=== PATIENT | female | born 1955 | race Caucasian/White ===

== ENCOUNTER 2017-02-10 11:49 | Emergency (ER) | payer OTHER ==
[~2017-02-10] VITALS: Ht 149.9 cm; Wt 84.0 kg
[~2017-02-10 11:49] MED LIST: DIPH2%T PO; FLUR30CA12 PO; LEVO.1 PO; MONT10TA2 PO; OXYC-360 PO; PRIL20TA2 PO; TRAM50TA PO; TRAZ150T2 PO; ZYRT10TA12 PO
[2017-02-10 12:00] VITALS: BP 163/94; PULSE 89; RESP 19; TEMP 98.3; O2SAT 97
[2017-02-10] MEDS ORDERED: ACETAMINOPHEN/HYDROcodone 325 MG/5 MG TAB PO ONE ×2 (12:30→13:30)
--- NOTE | 2017-02-10 13:13 | RADRPT ---
EXAM DATE/TIME: 02/10/2017 12:42 [facility] COMPARISON: No previous studies available for comparison. INDICATIONS : Fall pain over patella. MEDICAL HISTORY : None. SURGICAL HISTORY : None. ENCOUNTER: Initial ACUITY: 1 day PAIN SCORE: 9/10 LOCATION: Left knee. FINDINGS: Four view examination of the left knee demonstrates no evidence of fracture or dislocation. Bony min eralization is normal. The articular surfaces are intact. The suprapatellar soft tissues have a nor mal configuration. CONCLUSION: Negative for fracture or dislocation. Follow up in 7-10 days is suggested if symptoms persist. Jono Moreno MD FACR on February 10, 2017 at 13:11 Board Certified Radiologist. This report was verified electronically.
--- NOTE | 2017-02-10 13:13 | RADRPT ---
EXAM DATE/TIME: 02/10/2017 12:49 [facility] COMPARISON: No previous studies available for comparison. INDICATIONS : Fall with deformity to humerus. MEDICAL HISTORY : None. SURGICAL HISTORY : None. ENCOUNTER: Initial ACUITY: 1 day PAIN SCORE: 10/10 LOCATION: Left humerus FINDINGS: Humeral fracture again noted with moderate displacement and minimal overriding. There is no angulati on. CONCLUSION: Fracture as above. Jono Moreno MD FACR on February 10, 2017 at 13:11 Board Certified Radiologist. This report was verified electronically.
--- NOTE | 2017-02-10 13:45 | PD ---
HPI Chief Complaint: Injury Time Seen by Provider: 12:09 Travel History International Travel<30 days: No Contact w/Intl Traveler<30days: No Traveled to known affect area: No History of Present Illness HPI Patient is a 62-year-old female who presents to emergency room after she suffered a mechanical fall today. Patient reports that she was walking into a store this morning and she fell and landed on her left arm and left knee. Patient denies any loss of consciousness, denies any injury to the head or neck. Patient reports that she took the brunt for fall onto her left shoulder. Patient reports that she currently is not on any anticoagulants, she was able to able ambulate after the fall. Patient denies any chest pain or shortness of breath, denies any abdominal pain. Patient with no other complaints at this time. PFSH Past Medical History Arthritis: Yes (RA) Blood Disorders: No Cancer: Yes (BREAST) Cardiovascular Problems: No Diabetes: No Fibromyalgia: Yes GERD: Yes Glaucoma: No Genitourinary: No Hepatitis: No Hiatal Hernia: Yes Hypertension: No Immune Disorder: No Medical other: Yes (GERD; ARTHRITIS) Musculoskeletal: No Neurologic: No Reproductive: No Respiratory: No Thyroid Disease: Yes Tetanus Vaccination: > 5 Years ?: Not Past Surgical History AICD: No Gynecologic Surgery: Yes (D&C X 2) Insulin Pump: No Joint Replacement: No Oral Surgery: Yes (T&A (CHILDHOOD)) Pacemaker: No Tonsillectomy: Yes Other Surgery: Yes (BREAST BX) Social History Alcohol Use: No Tobacco Use: No Substance Use: No Allergies-Medications (Allergen,Severity, Reaction): Coded Allergies: Sulfa (Sulfonamide Antibiotics) (Unverified Allergy, Severe, 02/10/17) acetaminophen (Unverified Allergy, Severe, 02/10/17) adhesive (Unverified Allergy, Severe, ALSO ALLERGIC TO PAPER TAPE, 02/10/17 ) cephalexin (Unverified Allergy, Severe, 02/10/17) codeine (Unverified Allergy, Severe, 02/10/17) levofloxacin (Unverified Allergy, Severe, 02/10/17) meperidine (Unverified Allergy, Severe, 02/10/17) penicillin G (Unverified Allergy, Severe, 02/10/17) propoxyphene (Unverified Allergy, Severe, 02/10/17) pseudoephedrine (Unverified Allergy, Severe, 02/10/17) clarithromycin (Unverified Allergy, Intermediate, PT STATES SHE WAS AWAKE 3 DAYS, 02/10/17) rofecoxib (Unverified Allergy, Intermediate, NAUSEA AND VOMITING, 02/10/17) Uncoded Allergies: Z-PACK (Allergy, Severe, 04/03/05) BIAFINE (Adverse Reaction, Intermediate, LOCALIZED RASH, 07/11/08) DECONGESTANT (Adverse Reaction, Intermediate, INCREASE HEART-RATE, 05/09/08) REGENECARE (Adverse Reaction, Intermediate, LOCALIZED RASH, 07/11/08) Reported Meds & Prescriptions Reported Meds & Active Scripts Active Tramadol Hcl (Tramadol HCl) 50 Mg Tab 50 Mg PO Q6HR PRN Reported Percocet (Oxycodone/Acetaminophen) 5 Mg/325 Mg Tab 1-2 Tab PO Q6HPRN FOR PAIN Benadryl (Diphenhydramine HCl) 25 Mg Cap 25 Mg PO DAILYPRN Zyrtec (Cetirizine HCl) 10 Mg Tab 10 Mg PO HS Desyrel 150 Mg Tab (Trazodone HCl) 150 Mg Tab 150 Mg PO HS [place] 30 mg (Flurazepam HCl) 30 Mg Cap 30 Mg PO HS Singulair (Montelukast Sodium) 10 Mg Tab 10 Mg PO AM Synthroid 100 mcg (Levothyroxine Sodium) 100 Mcg Tab 100 Mcg PO DAILY Prilosec Otc (Omeprazole Magnesium) 20 Mg Tab 20 Mg PO DAILY Review of Systems General / Constitutional: No: Fever Eyes: No: Visual changes HENT: No: Headaches Cardiovascular: No: Chest Pain or Discomfort Respiratory: No: Shortness of Breath Gastrointestinal: No: Abdominal Pain Genitourinary: No: Dysuria Musculoskeletal: Positive: Limited ROM (left shoulder), Pain (left shoudler and left knee) Skin: No Rash Neurologic: No: Weakness Psychiatric: No: Depression Endocrine: No: Polydipsia Hematologic/Lymphatic: No: Easy Bruising Physical Exam Narrative GENERAL: moderate distress SKIN: Focused skin assessment warm/dry. HEAD: Atraumatic. Normocephalic. EYES: Pupils equal and round. No scleral icterus. No injection or drainage. ENT: No nasal bleeding or discharge. Mucous membranes pink and moist. NECK: Trachea midline. No JVD. CARDIOVASCULAR: Regular rate and rhythm. No murmur appreciated. RESPIRATORY: No accessory muscle use. Clear to auscultation. Breath sounds equal bilaterally. GASTROINTESTINAL: Abdomen soft, non-tender, nondistended. Hepatic and splenic margins not palpable. MUSCULOSKELETAL:Patient with pain with ROM to left shoulder and left elbow, patient with point tenderness to left humerus, pulses intact, neurovascularly intact. No clubbing. No cyanosis. No edema. Patient with good range of motion to the left hip, left knee and left ankle, she does have abrasion to her left. RUE: normal exam. RLL: normal exam NEUROLOGICAL: Awake and alert. No obvious cranial nerve deficits. Normal speech. PSYCHIATRIC: Appropriate mood and affect; insight and judgment normal. Data Data Last Documented VS Vital Signs Date Time Temp Pulse Resp B/P (MAP) Pulse Ox O2 Delivery O2 Flow Rate FiO2 02/10/17 12:00 98.3 89 19 163/94 (117) 97 Orders Orders Knee, Complete (4vws) (02/10/17 ) Elbow, Complete (4 Vws) (02/10/17 ) Forearm (2vws) (02/10/17 ) Acetamin-Hydrocod 325-5 Mg ([place] 5-325 (02/10/17 12:30) Humerus, One View (02/10/17 ) Acetamin-Hydrocod 325-5 Mg ([place] 5-325 (02/10/17 13:30) Splinting (02/10/17 ) Radiology Film Requests (02/10/17 ) Fiberglass Splint Elbow Adult (02/10/17 ) Sling And Swathe (02/10/17 ) [facility] Medical Decision Making Medical Screen Exam Complete: Yes Emergency Medical Condition: Yes Medical Record Reviewed: Yes Interpretation(s) Vital Signs Date Time Temp Pulse Resp B/P (MAP) Pulse Ox O2 Delivery O2 Flow Rate FiO2 02/10/17 12:00 98.3 89 19 163/94 (117) 97 Differential Diagnosis humerus fx, forearm fx, knee fx, patella fracture Narrative Course During the course of the patients emergency department visit, the patients history, examination, and differential diagnosis were reviewed with the patient. The patient was placed on a cardiac nurse practitioner with oximetry and frequent blood pressure monitoring. The patient was initially provided Lortab Radiology studies were reviewed and remarkable for: Last Impressions Knee X-Ray 02/10/17 0000 Signed Impressions: Service Date/Time: Friday, February 10, 2017 12:42 - CONCLUSION: Negative for fracture or dislocation. Follow up in 7-10 days is suggested if symptoms persist. Jono Moreno MD FACR Humerus X-Ray 02/10/17 0000 Signed Impressions: Service Date/Time: Friday, February 10, 2017 12:49 - CONCLUSION: Fracture as above. Jono Moreno MD FACR patient with fx to humeral head with moderate displacement and minimal overriding. call made to Dr. White to review case Case reviewed with Dr. White - request I talk to combination worker orthopedic surgery Case reviewed with Dr. Nolasco, requests that I place her in a coaptation splint - will have her follow-up in the office next week. Diagnosis Primary Impression: Humerus distal fracture Qualified Codes: S42.492A - Other displaced fracture of lower end of left humerus, initial encounter for closed fracture Referrals: Primo Nolasco Jr., MD Patient Instructions: General Instructions, Narcotic given in the ED Additional Instructions: Please provide patient with a copy of their lab work and studies at discharge* * Please follow up with your primary care doctor in 2-3 days Return to the ER if symptoms worsen or progress Return to the ER as needed Please follow-up with Dr. Mars in the office in one week, call first thing tomorrow morning for earliest appointment Med/Other Pt SpecificInfo: Prescription(s) given Scripts Hydrocodone-Acetaminophen (Lortab) 5-325 Mg Tab 1-2 TAB PO Q6H Y for PAIN, #20 TAB 0 Refills Prov: ArnoldMary Toshia SULLIVAN 02/10/17 Disposition: 01 DISCHARGE HOME Condition: Stable Mary Barrett DO Feb 10, 2017 13:45
[2017-02-10] MEDS ORDERED: HYDR-3533 PO (14:52)
--- NOTE | 2017-02-10 15:32 | RADRPT ---
EXAM DATE/TIME: 02/10/2017 14:48 [facility] COMPARISON: No previous studies available for comparison. INDICATIONS : Left arm pain after falling today. MEDICAL HISTORY : Rheumatoid arthritis. Fibromyalgia. SURGICAL HISTORY : Total knee replacement, right. ENCOUNTER: Initial ACUITY: 1 day PAIN SCORE: 8/10 LOCATION: Right forearm. FINDINGS: Two view examination of the left forearm demonstrates no evidence of fracture or dislocation. Bony m ineralization is normal. The soft tissue structures are intact. CONCLUSION: Negative for forearm fracture. Evaluation of the elbow. Distal humerus fracture is noted. Jono Moreno MD FACR on February 10, 2017 at 15:30 Board Certified Radiologist. This report was verified electronically.
--- NOTE | 2017-02-10 15:33 | RADRPT ---
EXAM DATE/TIME: 02/10/2017 14:50 [facility] COMPARISON: No previous studies available for comparison. INDICATIONS : Left elbow pain after falling today. MEDICAL HISTORY : Rheumatoid arthritis. Fibromyalgia. SURGICAL HISTORY : Total knee replacement, right. ENCOUNTER: Initial ACUITY: 1 day PAIN SCORE: 8/10 LOCATION: Left elbow. FINDINGS: Abdomen alignment about the elbow is in fiberglass. Fracture distal humerus in reasonable alignment. CONCLUSION: Elbow is intact. Jono Moreno MD FACR on February 10, 2017 at 15:31 Board Certified Radiologist. This report was verified electronically.
== END 2017-02-10 15:55 | disposition home or self-care (01) ==
LOC: NEPD 11:49
DX: S42.492A Other displaced fracture of lower end of left humerus, initial encounter for closed fracture (principal); M25.562 Pain in left knee; E07.9 Disorder of thyroid, unspecified; Z87.39 Personal history of other diseases of the musculoskeletal system and connective tissue; Z85.3 Personal history of malignant neoplasm of breast; Z87.19 Personal history of other diseases of the digestive system; W18.39XA Other fall on same level, initial encounter; Y92.512 Supermarket, store or market as the place of occurrence of the external cause
CPT/HCPCS: 29105; 73070; 73090; 73564

== ENCOUNTER 2017-02-16 07:27 | Observation (INO) | payer OTHER ==
[~2017-02-16] VITALS: Ht 149.9 cm; Wt 91.0 kg
[~2017-02-16 07:27] MED LIST changes: +HYDR-3533 PO
[2017-02-16] MEDS ORDERED: GENTAMICIN SULFATE 80 MG/2 ML VIAL ONE (07:41)
[2017-02-16] MEDS ORDERED: TRAZ100T10 PO (08:33)
[2017-02-16] MEDS ORDERED: OMEGCAP PO (08:33)
[2017-02-16] MEDS ORDERED: PLAQ200T PO (08:33)
[2017-02-16] MEDS ORDERED: METH25IN11 SQ (08:33)
[2017-02-16] MEDS ORDERED: LEVO100T5 PO (08:33)
[2017-02-16] MEDS ORDERED: CEVI1CAP PO ×2 (08:33→15:25)
[2017-02-16] MEDS ORDERED: HYDR-3580 PO (08:33)
[2017-02-16] MEDS ORDERED: TEMA30CA PO (08:33)
[2017-02-16] MEDS ORDERED: MELO7.5T27 PO (08:33)
[2017-02-16] MEDS ORDERED: DEXA0.5S PO (08:33)
[2017-02-16] MEDS ORDERED: CETI10CA3 PO (08:33)
[2017-02-16] MEDS ORDERED: OMEP20TA93 PO (08:33)
[2017-02-16] MEDS ORDERED: GABA300C5 PO (08:33)
[2017-02-16] MEDS ORDERED: FOLI400T PO (08:33)
[2017-02-16] MEDS ORDERED: FLUT1SPR5 EACH NARE (08:33)
[2017-02-16] MEDS ORDERED: FIBE500T PO (08:33)
[2017-02-16] MEDS ORDERED: ACETAMINOPHEN 1000 MG/100 ML 100 ML IV ONE (08:43)
[2017-02-16] MEDS ORDERED: CHLORHEXIDINE GLUCONATE 2 % 1 PACK (2 CLOTHS) TOPICAL PRN (08:45)
[2017-02-16] MEDS ORDERED: POVIDONE IODINE 5% (ANTISEPSIS KIT) 4 APPLICATIONS EACH NARE PRN (08:45)
[2017-02-16] MEDS ORDERED: SODIUM CHLORID 0.9% 500 ML IV PRN (08:45)
[2017-02-16] MEDS ORDERED: LACTATED RINGER'S 1000 ML IV PRN (08:45)
[2017-02-16] MEDS ORDERED: METOPROLOL TARTRATE 25 MG TAB PO PRN (08:45)
[2017-02-16] MEDS ORDERED: INSULIN HUMAN REGULAR 1,000 UNITS/10 ML VIAL SQ PRN (08:45)
[2017-02-16] MEDS ORDERED: ACET500L PO (08:50)
[2017-02-16] MEDS ORDERED: FAMOTIDINE 20 MG/2 ML VIAL ONE (08:52)
[2017-02-16] MEDS ORDERED: VANCOMYCIN 1000 MG/NS 250 ML (for <70 kg) IV SCH ×2 (09:00)
[2017-02-16] MEDS ORDERED: CHLORHEXIDINE GLUCONATE 4% SOLN 120 ML BTL TOPICAL SCH (09:00)
[2017-02-16] MEDS ORDERED: CLINDAMYCIN PHOS 600 MG/4 ML VIAL ONE (09:26)
[2017-02-16] MEDS ORDERED: HYDR-3583 PO (09:55)
[2017-02-16] MEDS ORDERED: CALCTAB19 PO (09:55)
[2017-02-16 10:18] LABS: HEMATOCRIT 34.5 % (35.0-46.0); MEAN CELL VOLUME 84.5 FL (80.0-100.0); MEAN CORPUSCULAR HEMOGLOBIN 29.1 PG (27.0-34.0); MEAN CORPUSCULAR HGB CONC 34.5 % (32.0-36.0); PLATELET COUNT 236 TH/MM3 (150-450); RED BLOOD COUNT 4.08 MIL/MM3 (4.00-5.30); RED CELL DISTRIBUTION WIDTH 14.1 % (11.6-17.2); REVIEW FLAG FINAL; WHITE BLOOD COUNT 6.9 TH/MM3 (4.0-11.0)
[2017-02-16 10:23] LABS: PROTHROMBIN TIME - PATIENT 11.2 SEC (9.8-11.6)
[2017-02-16 10:57] LABS: BICARBONATE 23.7 MEQ/L (21.0-32.0); POTASSIUM 4.2 MEQ/L (3.5-5.1)
[2017-02-16] MEDS ORDERED: DEXAMETHASONE 0.5 MG PO PRN (11:45)
--- NOTE | 2017-02-16 11:49 | PD.OP ---
cc: Yves Romero MD Operative Report Date of Surgery: Feb 16, 2017 Preoperative Diagnosis: Displaced left humeral shaft fracture Postoperative Diagnosis: Procedure: Open reduction total fixation left humeral shaft fracture Anesthesia: Gen. Surgeon: Yves Romero Commercial Carpet Installer(s): RENEE Dinero PA-C The surgical procedure was assisted by my physician tutoring assistant. My P.A. presence was necessary throughout this case for the manipulation and positioning of the surgical extremity. My P.A. was assisting me throughout the duration of this procedure. The skill set of a physician tutoring assistant was medically necessary to complete this procedure. During the surgical case the surgical garment fitter was working at the back table and the physician tutoring assistant was directly assisting me. Operation and Findings: Patient was seen and evaluated preoperatively. Treatment options were discussed regarding left humerus fracture including surgical and nonsurgical treatments. After detailed discussion of risk and benefits of procedure patient wishes to proceed with surgery. Risks of surgery include bleeding, infection, nonunion, malunion, painful hardware, loss of motion of shoulder and elbow, weakness and numbness of arm, as well as medical competitions including blood clots stroke and . Patient was brought to operating room and placed on the OR table. GETA was administered by anesthesiologist. Patient was positioned in lateral decubitus position. Extremities were well-padded. Axillary roll was placed. Operative arm and shoulder were prepped with alcohol followed by Hibiclens and draped usual sterile fashion. Timeout procedure was performed. IV antibiotics were given prior to incision. A standard posterior approach was utilized. Subcutaneous tissues was dissected with Bovie. The triceps muscle was split midline. The radial nerve was identified and protected throughout the procedure. The nerve was intact. The fracture was identified. Soft tissue was removed from the fracture site. Fracture site was cleaned with curettes. At this point the fracture was reduced using fracture tenaculums. There was a large butterfly fragment that keyed into anatomic alignment. Multiplanar fluoroscopy confirmed excellent of fracture. 3 Synthes 2.7 cortical lag screws were placed to compress fracture fragments. A Synthes 3.5 plate was contoured to fit the humerus. The plate was carefully placed underneath the radial nerve. Plate was provisionally held the bone with K wires. 3.5 cortical screws were placed on each side of the fracture. The screws were placed to add compression to fracture. Multiple screws were placed in each side of the fracture. All screws were predrilled and premeasured for appropriate length. Final fluoroscopy revealed excellent alignment of fracture with well-placed hardware. Incision was thoroughly irrigated. Fascia was closed with #1 Vicryl, subcutaneous tissues closed with 3 -0 Vicryl, and skin was closed with minnie. Sterile dressings were applied. Needle and sponge counts were correct. Patient was placed into a sling, and then transferred to recovery room in stable condition Yves Romero MD Feb 16, 2017 11:49
[2017-02-16] MEDS ORDERED: LIDOCAINE HCL 1% PF 5 ML AMPULE OTHER ONE (12:00)
[2017-02-16] MEDS ORDERED: ROCURONIUM INJ 50 MG/5 ML SYRINGE IV PUSH ONE (12:00)
[2017-02-16] MEDS ORDERED: GLYCOPYRROLATE 1 MG/5 ML SYRINGE IV PUSH ONE (12:00)
[2017-02-16] MEDS ORDERED: PROPOFOL 200 MG/20 ML AMP IV ONE (12:00)
[2017-02-16] MEDS ORDERED: NEOSTIGMINE 3 MG/3 ML SYR IV ONE (12:00)
[2017-02-16] MEDS ORDERED: ONDANSETRON HCL 4 MG/2 ML VIAL IV PUSH ONE (12:00)
[2017-02-16] MEDS ORDERED: MIDAZOLAM HCL 2 MG/2 ML VIAL IV ONE (12:00)
[2017-02-16] MEDS ORDERED: DEXAMETHASONE SOD PHOS 4 MG/ML VIAL IV ONE (12:00)
--- NOTE | 2017-02-16 12:02 | RADRPT ---
EXAM DATE/TIME: 02/16/2017 11:32 [facility] COMPARISON: HUMERUS LEFT (MIN 2VWS), February 10, 2017, 12:49. INDICATIONS : Post-op ORIF left distal humerus fracture. MEDICAL HISTORY : None. SURGICAL HISTORY : None. ENCOUNTER: Subsequent ACUITY: 1 week PAIN SCORE: Non-responsive. LOCATION: Left upper extremity FINDINGS: 5 spot fluoroscopic images obtained in the operating room during a procedure demonstrates placement o f a lateral distal humeral side plate with multiple interlocking screws. 3 lag screws are identified. There is improved anatomic alignment. CONCLUSION: Improved alignment following left distal humerus ORIF. Maulik Quiroz MD on February 16, 2017 at 11:59 Board Certified Radiologist. This report was verified electronically.
[2017-02-16] MEDS ORDERED: DO NOT ADM ANY ANTICOAGULANT DRUGS PRN (12:17)
[2017-02-16] MEDS ORDERED: *morphine SULFATE 8 MG/ML PERIprocedure ONLY ONE ×2 (12:42→13:31)
[2017-02-16] MEDS ORDERED: *LABETALOL HCL 100 MG/20 ML VIAL PERIprocedural Use ONLY ONE (12:46)
[2017-02-16] MEDS: GABAPENTIN 300 MG CAP PO SCH ×2 (13:00→16:48)
[2017-02-16] MEDS ORDERED: TEMAZEPAM 15 MG CAP PO PRN (13:00)
[2017-02-16] MEDS ORDERED: *HYDROmorphone PF 1 MG VIAL PERIprocedural Use ONLY ONE (13:49)
--- NOTE | 2017-02-16 14:01 | EKG ---
Date Performed: 02/16/2017 Time Performed: 08:24:56 PTAGE: 62 years EKG: Sinus rhythm NORMAL ECG PREVIOUS TRACING : 10/01/2009 08.15 Compared to prior tracing no significant change DOCTOR: Rolando Tamayo Interpretating Date/Time 02/16/2017 13:59:05
[2017-02-16 16:00] VITALS: BP 148/87; PULSE 95; RESP 18; TEMP 99.6; O2SAT 95
[2017-02-16 20:00] VITALS: BP 126/69; PULSE 108; RESP 20; TEMP 97.7; O2SAT 95
[2017-02-16] MEDS ORDERED: ACETAMINOPHEN/HYDROcodone 325 MG/10 MG TAB PO PRN (20:30)
[2017-02-16 20:45] VITALS: O2SAT 95
[2017-02-16] MEDS: HYDROXYCHLOROQUINE SULFATE 200 MG TAB PO SCH (20:59)
[2017-02-16] MEDS: FOLIC ACID 1 MG TAB PO SCH (20:59)
[2017-02-16] MEDS: ACETAMINOPHEN/HYDROcodone 325 MG/10 MG TAB PO PRN (20:59)
[2017-02-16] MEDS ORDERED: CETIRIZINE HCL 10 MG TAB PO SCH (21:00)
[2017-02-16] MEDS ORDERED: traZODone HCL 100 MG TAB PO SCH (21:00)
[2017-02-17] VITALS: BP 122/69; PULSE 112; RESP 20; TEMP 98.7; O2SAT 94
[2017-02-17 04:00] VITALS: BP 114/69; PULSE 104; RESP 20; TEMP 98.6; O2SAT 95
[2017-02-17] MEDS: ACETAMINOPHEN/HYDROcodone 325 MG/10 MG TAB PO PRN (05:02)
[2017-02-17] MEDS ORDERED: LEVOTHYROXINE SODIUM 100 MCG TAB PO SCH (06:00)
--- NOTE | 2017-02-17 07:04 | HHI.FF ---
Face to Face Verification Diagnosis: (1) Fracture of humeral shaft, left, closed Occupational Therapy Left UE Weight Bearing: Non WB Left UE Range of Motion: Pendular Nursing Dressing Changes: Ray wrap, 4x4s, Xeroform I have seen patient Rachel Chavez on 02/17/17. My clinical findings support the need for the requested home health care services because: Limited ability to care for self I certify that my clinical findings support that this patient is homebound because: Post-op weakness Simon Deng Jr. Feb 17, 2017 07:04
--- NOTE | 2017-02-17 07:07 | PD.ORT.PN ---
Subjective Subjective Remarks Resting comfortably with pain controlled Objective Vitals Vital Signs Date Time Temp Pulse Resp B/P (MAP) Pulse Ox O2 Delivery O2 Flow Rate FiO2 02/17/17 04:00 98.6 104 20 114/69 (84) 95 02/17/17 00:00 98.7 112 20 122/69 (86) 94 02/16/17 20:45 95 21 02/16/17 20:00 97.7 108 20 126/69 (88) 95 02/16/17 16:00 99.6 95 18 148/87 (107) 95 02/16/17 14:50 98.0 97 16 158/91 (113) 98 Nasal Cannula 2 02/16/17 14:30 96 18 169/89 (115) 99 Nasal Cannula 2 02/16/17 14:00 96 19 169/95 (119) 99 Nasal Cannula 2 02/16/17 13:45 93 17 177/95 (122) 99 Nasal Cannula 2 02/16/17 13:30 90 18 166/97 (120) 99 Nasal Cannula 2 02/16/17 13:15 92 18 160/90 (113) 99 Nasal Cannula 3 02/16/17 13:00 93 18 166/96 (119) 98 Nasal Cannula 3 02/16/17 12:45 92 18 175/99 (124) 98 Nasal Cannula 3 02/16/17 12:30 99 18 163/75 (104) 98 Nasal Cannula 3 02/16/17 12:16 98.2 115 20 143/76 (98) 96 Nasal Cannula 3 02/16/17 08:19 97.8 95 18 136/78 (97) 100 I/O 02/16/17 02/16/17 02/16/17 02/17/17 02/17/17 02/17/17 07:00 15:00 23:00 07:00 15:00 23:00 Intake Total 1100 ml 380 ml 220 ml Output Total 200 ml 250 ml 300 ml Balance 900 ml 130 ml -80 ml Intake Oral 100 ml 380 ml 220 ml IV Total 0 ml Other 1000 ml Output Urine Total 250 ml 300 ml Estimated Blood Loss 200 ml # Voids 1 # Bowel Movements 0 0 Result Diagram: 02/16/17 1005 02/16/17 1005 Other Results Laboratory Tests Test 02/16/17 10:05 Prothromb Time International Ratio 1.0 RATIO Prothrombin Time 11.2 SEC (9.8-11.6) Imaging Last 72 hours Impressions Humerus X-Ray 02/16/17 0000 Signed Impressions: Service Date/Time: Thursday, February 16, 2017 11:32 - CONCLUSION: Improved alignment following left distal humerus ORIF. Maulik Quiroz MD Objective Remarks Left upper extremity: Clean dry dressings intact. Sling in place. Distally intact sensation of her radial ulnar median nerve distributions with good capillary refills. Full extension and flexion of all fingers. Assessment & Plan Assessment and Plan Left distal humeral shaft fracture status post open reduction internal fixation POD 1 Nonweightbearing left upper extremity Sling at all times except for physical therapy and or pendulum swings. Discharged home today Case management for home health care for dressing changes and pendulum swings Follow-up Dr. Romero or PA in 2 weeks Simon Deng Jr. Feb 17, 2017 07:07
[2017-02-17 08:00] VITALS: BP 99/69; PULSE 100; RESP 18; TEMP 96.5; O2SAT 98
[2017-02-17] MEDS ORDERED: PANTOPRAZOLE SOD 20 MG DELAYED RELEASE TAB PO SCH (09:00)
[2017-02-17] MEDS ORDERED: FLUTICASONE PROPIONATE 50 MCG/ACT 16 GM NASAL SPRAY EACH NARE SCH (09:00)
[2017-02-17] MEDS ORDERED: CALCIUM CARBONATE 1.25 GM (CA 500 MG) TAB PO SCH (09:00)
[2017-02-17] MEDS: GABAPENTIN 300 MG CAP PO SCH (09:19)
[2017-02-17] MEDS: HYDROXYCHLOROQUINE SULFATE 200 MG TAB PO SCH (09:20)
[2017-02-17] MEDS: FOLIC ACID 1 MG TAB PO SCH (09:20)
== END 2017-02-17 12:06 | disposition home or self-care (01) ==
LOC: HSDC 07:27 → HPAC 12:56 → HSDC 15:19 → N06B 15:19
PROVIDERS: ADMIT Orthopaedic Surgery Orthopaedic Trauma; ATTEND Orthopaedic Surgery Orthopaedic Trauma
DX: S42.302A Unspecified fracture of shaft of humerus, left arm, initial encounter for closed fracture (principal); M17.10 Unilateral primary osteoarthritis, unspecified knee; M51.16 Intervertebral disc disorders with radiculopathy, lumbar region; M54.30 Sciatica, unspecified side; M50.30 Other cervical disc degeneration, unspecified cervical region; M79.7 Fibromyalgia; M06.9 Rheumatoid arthritis, unspecified; E03.9 Hypothyroidism, unspecified; K21.9 Gastro-esophageal reflux disease without esophagitis; Z85.3 Personal history of malignant neoplasm of breast; W19.XXXA Unspecified fall, initial encounter; Y92.481 Parking lot as the place of occurrence of the external cause
CPT/HCPCS: 01740; 24515; 73060; 76000; 80048; 85027; 85610; 93005; 97161; C1713; G0378; G8987; G8988; J0131; J1100; J1170; J1580; J2250; J2270; J2405; J2710; J3010; J3370; J7050; J7120

== ENCOUNTER 2017-02-20 12:41 | Emergency (ER) | payer OTHER ==
[~2017-02-20] VITALS: Ht 149.9 cm; Wt 85.0 kg
[~2017-02-20 12:41] MED LIST changes: +ACET500L PO; +CALCTAB19 PO; +CETI10CA3 PO; +CEVI1CAP PO; +DEXA0.5S PO; -DIPH2%T PO; -FLUR30CA12 PO; +FLUT1SPR5 EACH NARE; +FOLI400T PO; +GABA300C5 PO; -HYDR-3533 PO; +HYDR-3583 PO; -LEVO.1 PO; +LEVO100T5 PO; +METH25IN11 SQ; -MONT10TA2 PO; +OMEP20TA93 PO; -OXYC-360 PO; +PLAQ200T PO; -PRIL20TA2 PO; +TEMA30CA PO; -TRAM50TA PO; +TRAZ100T10 PO; -TRAZ150T2 PO; -ZYRT10TA12 PO
[2017-02-20 12:44] VITALS: BP 118/69; PULSE 105; RESP 16; TEMP 98.4; O2SAT 98
[2017-02-20] MEDS ORDERED: oxyCODONE/ACETAMINOPHEN 5 MG/325 MG TAB PO ONE (13:15)
--- NOTE | 2017-02-20 13:15 | PD ---
HPI Chief Complaint: Pain: Acute or Chronic Time Seen by Provider: 12:54 Travel History International Travel<30 days: No Contact w/Intl Traveler<30days: No Traveled to known affect area: No History of Present Illness HPI 62yo F with PMH of fibromyalgia, osteoporosis presents to the ED with c/o right sided back pain for a few days. States pain is sharp, worst with movement and constant today. Said she tried heating pad and didnt help. Pain is localized and does not radiate. Pt denies any fever, chest pain, sob, n/v, abdominal pain , urinary complaints, focal weakness or numbness. Pt fell on 02/10/17 and was found to have a left humerus fracture. Pt had ORIF left humerus on 02/18/[address] Romero. She took a hydrocodone at 9am this morning but still has pain. Denies any new fall or trauma. PFSH Past Medical History Arthritis: Yes (RA) Blood Disorders: No Cancer: Yes (L BREAST W RADIATION 2008) Cardiovascular Problems: No Diabetes: No Endocrine: No Fibromyalgia: Yes Gastrointestinal Disorders: Yes (GERD) GERD: Yes Glaucoma: No Genitourinary: No Hepatitis: No Hiatal Hernia: Yes Hypertension: No Immune Disorder: No Musculoskeletal: Yes (L HUMEROUS FX, ARTHRITIS, R.A,SPINAL STENOSIS, OSTEOPOROSIS, SCIATICA) Neurologic: Yes (FIBROMYALGIA) Psychiatric: No Reproductive: No Respiratory: No Thyroid Disease: Yes (hypothyroid) Past Surgical History AICD: No Gynecologic Surgery: Yes (D&C X 2) Insulin Pump: No Joint Replacement: Yes (R KNEE 2006) Oral Surgery: Yes (T&A (CHILDHOOD)) Pacemaker: No Thoracic Surgery: Yes (L LUMPECTOMY) Tonsillectomy: Yes Other Surgery: Yes (BREAST BX) Social History Alcohol Use: No Tobacco Use: No Substance Use: No Allergies-Medications (Allergen,Severity, Reaction): Coded Allergies: Sulfa (Sulfonamide Antibiotics) (Verified Allergy, Severe, 02/20/17) adhesive (Verified Allergy, Severe, ALSO ALLERGIC TO PAPER TAPE, 02/20/17) cephalexin (Verified Allergy, Severe, 02/20/17) codeine (Verified Allergy, Severe, 02/20/17) levofloxacin (Verified Allergy, Severe, 02/20/17) meperidine (Verified Allergy, Severe, 02/20/17) penicillin G (Verified Allergy, Severe, 02/20/17) propoxyphene (Verified Allergy, Severe, 02/20/17) pseudoephedrine (Verified Allergy, Severe, 02/20/17) clarithromycin (Verified Allergy, Intermediate, PT STATES SHE WAS AWAKE 3 DAYS, 02/20/17) rofecoxib (Verified Allergy, Intermediate, NAUSEA AND VOMITING, 02/20/17) Uncoded Allergies: Z-PACK (Allergy, Severe, 04/03/05) Reported Meds & Prescriptions Reported Meds & Active Scripts Active Calcium 600+D 200 (Calcium Carbonate-Vitamin D) 600-200 Mg-Unit Tab 1 Tab PO BID Hydrocodone-Acetaminophen 10-325 mg Tab 1 Tab PO Q4H PRN Reported Acetaminophen Extra Strength Liq (Acetaminophen) 500 Mg/15 Ml Soln 500 Mg PO Q4- 6H PRN Zyrtec (Cetirizine HCl) 10 Mg Capsule 10 Mg PO HS Plaquenil (Hydroxychloroquine Sulfate) 200 Mg Tab 200 Mg PO BID Take with food Trazodone (Trazodone HCl) 100 Mg Tablet 100 Mg PO HS Flonase Nasal [place] (Fluticasone Nasal [place]) 50 Mcg/Act [place] 50 Mcg EACH NARE DAILY Methotrexate 25 mg/ml Vial (Methotrexate Sodium/Pf) 25 Mg/Ml Vial 0.1 Ml SQ WEDNESDAY Gabapentin 300 Mg Cap 300 Mg PO TID Omeprazole 20 Mg Tab 20 Mg PO DAILY Temazepam 30 Mg Cap 30 Mg PO HS PRN Levothyroxine (Levothyroxine Sodium) 100 Mcg Tab 100 Mcg PO DAILY Dexamethasone Liq (Dexamethasone) 0.5 Mg/5 Ml Soln 0.5 Mg PO BID PRN Folic Acid 0.4 Mg Tab 1,000 Mcg PO BID Cevimeline (Cevimeline HCl) 30 Mg Cap 30 Mg PO TID Review of Systems Except as stated in HPI: all other systems reviewed are Neg Physical Exam Narrative GENERAL: 62yo F in mild distress. SKIN: Focused skin assessment warm/dry. HEAD: Atraumatic. Normocephalic. CARDIOVASCULAR: Regular rate and rhythm. No murmur appreciated. RESPIRATORY: No accessory muscle use. Clear to auscultation. Breath sounds equal bilaterally. GASTROINTESTINAL: Abdomen soft, non-tender, nondistended. No rebound tenderness or guarding. MUSCULOSKELETAL: +TTP right posterior ribs 10-12. LUE: In splint and sling. Radial pulse 2+. +Edema and ecchymoses left hand. Moving all digits. BACK: No midline ttp thoracic or lumbar spine. No CVA tenderness. NEUROLOGICAL: Awake and alert. No obvious cranial nerve deficits. Motor grossly within normal limits. Normal speech. PSYCHIATRIC: Appropriate mood and affect; insight and judgment normal. Data Data Last Documented VS Vital Signs Date Time Temp Pulse Resp B/P (MAP) Pulse Ox O2 Delivery O2 Flow Rate FiO2 02/20/17 12:44 98.4 105 16 118/69 (85) 98 Orders Orders Ribs, Uni (W/Exp Cxr-Min 3vw) (02/20/17 ) Oxycodone-Acetamin 5-325 Mg (Percocet (02/20/17 13:15) Diazepam (Valium) (02/20/17 14:30) MDM Medical Decision Making Medical Screen Exam Complete: Yes Emergency Medical Condition: Yes Differential Diagnosis Rib fracture vs. rib contusion vs. musculoskeletal pain Narrative Course 62yo F here with right side back pain. No red flags. No new trauma. However, on exam, pt is tender on right posterior ribs instead. No midline thoracic or lumbar ttp. No focal neurologic deficits. Xray right ribs showed no acute fractures. Pt was given 1 percocet and said pain is relived. Pt still has hydrocodone 7.5mg and will have pt take that for pain at home. Return precautions given. Diagnosis Primary Impression: Rib pain on right side Patient Instructions: General Instructions Departure Forms: Tests/Procedures Additional Instructions: Please follow up with your primary care physician in 2-3 days. Please take the hydrocodone that you have for pain. Return to the ED if symptoms worsen. Med/Other Pt SpecificInfo: No Change to Meds Disposition: 01 DISCHARGE HOME Condition: Stable Evelyn Hager DO Feb 20, 2017 13:15
--- NOTE | 2017-02-20 13:40 | RADRPT ---
EXAM DATE/TIME: 02/20/2017 13:22 [facility] COMPARISON: RIBS RIGHT(W PA CXR MIN 3VWS), December 14, 2014, 16:41. INDICATIONS : POsterior, lower rib pain persisting since fall on 02/16/17 MEDICAL HISTORY : None. SURGICAL HISTORY : None. ENCOUNTER: Initial ACUITY: 4 - 6 days PAIN SCORE: 5/10 LOCATION: Cardiomegaly. Mild elevation left hemidiaphragm stable. There is no evidence of pneumothorax or conso lidation. FINDINGS: Multiple views of the right ribs were performed. There is no evidence of displaced fracture. No jone tructive lesions or areas of periosteal thickening are seen. Expiratory view of the chest is negativ e for pneumothorax. The mediastinal structures are midline. CONCLUSION: 1. No acute fractures. Jarred Dickson MD on February 20, 2017 at 13:36 Board Certified Radiologist. This report was verified electronically.
[2017-02-20] MEDS ORDERED: DIAZEPAM 5 MG TAB PO ONE (14:30)
[2017-02-20 14:42] VITALS: PULSE 66
== END 2017-02-20 14:45 | disposition home or self-care (01) ==
LOC: NEPD 12:41
DX: R07.81 Pleurodynia (principal); E03.9 Hypothyroidism, unspecified; Z98.890 Other specified postprocedural states; Z87.39 Personal history of other diseases of the musculoskeletal system and connective tissue; Z85.3 Personal history of malignant neoplasm of breast; Z87.19 Personal history of other diseases of the digestive system
CPT/HCPCS: 71101; 99283

== ENCOUNTER 2017-04-09 11:31 | Emergency (ER) | payer OTHER ==
[~2017-04-09] VITALS: Ht 149.9 cm; Wt 85.5 kg
[2017-04-09 11:32] VITALS: BP 158/91; PULSE 107; RESP 18; TEMP 99; O2SAT 100
[2017-04-09] MEDS ORDERED: DIAZEPAM 5 MG TAB PO ONE (12:00)
[2017-04-09] MEDS ORDERED: ACETAMINOPHEN/HYDROcodone 325 MG/5 MG TAB PO ONE (12:00)
[2017-04-09] MEDS ORDERED: oxyCODONE/ACETAMINOPHEN 5 MG/325 MG TAB PO ONE (12:00)
--- NOTE | 2017-04-09 12:25 | RADRPT ---
EXAM DATE/TIME: 04/09/2017 12:02 [facility] COMPARISON: No previous studies available for comparison. INDICATIONS : Pain right scapula since fall 2 months ago, left humerus was repaired after fall but has persistant p ain in the right scapula area MEDICAL HISTORY : left humerus fracture SURGICAL HISTORY : surgical repair left humerus ENCOUNTER: Initial ACUITY: 2 months PAIN SCORE: 5/10 LOCATION: Right scapula FINDINGS: Two view examination of the right scapula demonstrates no evidence of fracture. The glenohumeral and acromioclavicular joints are maintained. Bony mineralization is normal. CONCLUSION: Negative for fracture. Jono Moreno MD FACR on April 09, 2017 at 12:23 Board Certified Radiologist. This report was verified electronically.
--- NOTE | 2017-04-09 13:02 | PD ---
HPI Chief Complaint: Musculoskeletal Complaint Time Seen by Provider: 11:40 Travel History International Travel<30 days: No Contact w/Intl Traveler<30days: No Traveled to known affect area: No History of Present Illness HPI 62yo F with PMH of fibromyalgia, osteoporosis, rheumatoid arthritis, chronic pain here with c/o right gluteus pain that radiates down posterior right thigh for last few days. Denies any trauma, fever, urinary or fecal incontinence, chest pain, sob, n/v, abdominal pain, focal weakness. Pt has right scapula pain since 02/2017 and it feel like burning and worst with movement. PFSH Past Medical History Arthritis: Yes (RA) Blood Disorders: No Cancer: Yes (L BREAST W RADIATION 2008) Cardiovascular Problems: No Diabetes: No Endocrine: No Fibromyalgia: Yes Gastrointestinal Disorders: Yes (GERD) GERD: Yes Glaucoma: No Genitourinary: No Hepatitis: No Hiatal Hernia: Yes Hypertension: No Immune Disorder: No Musculoskeletal: Yes (L HUMEROUS FX, ARTHRITIS, R.A,SPINAL STENOSIS, OSTEOPOROSIS, SCIATICA) Neurologic: Yes (FIBROMYALGIA) Psychiatric: No Reproductive: No Respiratory: No Thyroid Disease: Yes (hypothyroid) Past Surgical History AICD: No Gynecologic Surgery: Yes (D&C X 2) Insulin Pump: No Joint Replacement: Yes (R KNEE 2006) Oral Surgery: Yes (T&A (CHILDHOOD)) Pacemaker: No Thoracic Surgery: Yes (L LUMPECTOMY) Tonsillectomy: Yes Other Surgery: Yes (BREAST BX) Social History Alcohol Use: No Tobacco Use: No Substance Use: No Allergies-Medications (Allergen,Severity, Reaction): Coded Allergies: Sulfa (Sulfonamide Antibiotics) (Verified Allergy, Severe, 04/09/17) adhesive (Verified Allergy, Severe, ALSO ALLERGIC TO PAPER TAPE, 04/09/17) cephalexin (Verified Allergy, Severe, 04/09/17) codeine (Verified Allergy, Severe, 04/09/17) levofloxacin (Verified Allergy, Severe, 04/09/17) meperidine (Verified Allergy, Severe, 04/09/17) penicillin G (Verified Allergy, Severe, 04/09/17) propoxyphene (Verified Allergy, Severe, 04/09/17) pseudoephedrine (Verified Allergy, Severe, 04/09/17) clarithromycin (Verified Allergy, Intermediate, PT STATES SHE WAS AWAKE 3 DAYS, 04/09/17) rofecoxib (Verified Allergy, Intermediate, NAUSEA AND VOMITING, 04/09/17) Uncoded Allergies: Z-PACK (Allergy, Severe, 04/03/05) Reported Meds & Prescriptions Reported Meds & Active Scripts Active Calcium 600+D 200 (Calcium Carbonate-Vitamin D) 600-200 Mg-Unit Tab 1 Tab PO BID Hydrocodone-Acetaminophen 10-325 mg Tab 1 Tab PO Q4H PRN Reported Acetaminophen Extra Strength Liq (Acetaminophen) 500 Mg/15 Ml Soln 500 Mg PO Q4- 6H PRN Zyrtec (Cetirizine HCl) 10 Mg Capsule 10 Mg PO HS Plaquenil (Hydroxychloroquine Sulfate) 200 Mg Tab 200 Mg PO BID Take with food Trazodone (Trazodone HCl) 100 Mg Tablet 100 Mg PO HS Flonase Nasal [place] (Fluticasone Nasal [place]) 50 Mcg/Act [place] 50 Mcg EACH NARE DAILY Methotrexate 25 mg/ml Vial (Methotrexate Sodium/Pf) 25 Mg/Ml Vial 0.1 Ml SQ WEDNESDAY Gabapentin 300 Mg Cap 300 Mg PO TID Omeprazole 20 Mg Tab 20 Mg PO DAILY Temazepam 30 Mg Cap 30 Mg PO HS PRN Levothyroxine (Levothyroxine Sodium) 100 Mcg Tab 100 Mcg PO DAILY Dexamethasone Liq (Dexamethasone) 0.5 Mg/5 Ml Soln 0.5 Mg PO BID PRN Folic Acid 0.4 Mg Tab 1,000 Mcg PO BID Cevimeline (Cevimeline HCl) 30 Mg Cap 30 Mg PO TID Review of Systems Except as stated in HPI: all other systems reviewed are Neg Physical Exam Narrative GENERAL: 62yo F in mild distress. SKIN: Focused skin assessment warm/dry. HEAD: Atraumatic. Normocephalic. EYES: Pupils equal and round. No scleral icterus. No injection or drainage. ENT: No nasal bleeding or discharge. Mucous membranes pink and moist. NECK: Trachea midline. No JVD. CARDIOVASCULAR: Regular rate and rhythm. No murmur appreciated. RESPIRATORY: No accessory muscle use. Clear to auscultation. Breath sounds equal bilaterally. GASTROINTESTINAL: Abdomen soft, non-tender, nondistended. BACK: No midline cervical, thoracic or lumbar ttp. MUSCULOSKELETAL: +TTP medial scapula. +TTP right gluteus genaro. +Straight leg test right. NEUROLOGICAL: Awake and alert. No obvious cranial nerve deficits. Motor grossly within normal limits. Normal speech. Data Data Last Documented VS Vital Signs Date Time Temp Pulse Resp B/P (MAP) Pulse Ox O2 Delivery O2 Flow Rate FiO2 04/09/17 11:32 99.0 107 18 158/91 (113) 100 Room Air Orders Orders Scapula (04/09/17 ) Diazepam (Valium) (04/09/17 12:00) Oxycodone-Acetamin 5-325 Mg (Percocet (04/09/17 12:00) Acetamin-Hydrocod 325-5 Mg ([place] 5-325 (04/09/17 12:00) MDM Medical Decision Making Medical Screen Exam Complete: Yes Emergency Medical Condition: Yes Differential Diagnosis Sciatica vs. musculoskeletal pain Narrative Course 62yo F with shooting pain down posterior right leg from right gluteus consistent with sciatica. Pt is persistent about getting a scapula xray even though she had no trauma. Xray right scapula negative for fracture. Pt given valium and hydrocodone. Pt reevaluated at bedside and pain has improved. She wants to go home. Return precautions given. Pt has hydrocodone at home so will not give any pain medicaiton. Diagnosis Primary Impression: Sciatica Qualified Codes: M54.31 - Sciatica, right side Patient Instructions: General Instructions Departure Forms: Tests/Procedures Additional Instructions: Please follow up with your primary care physician in 3-7 days. Return to the ED if symptoms worsen. Med/Other Pt SpecificInfo: No Change to Meds Disposition: 01 DISCHARGE HOME Condition: Stable Evelyn Hager DO Apr 09, 2017 13:02
== END 2017-04-09 13:54 | disposition home or self-care (01) ==
LOC: NEPC 11:31
DX: M54.31 Sciatica, right side (principal); M25.511 Pain in right shoulder; E03.9 Hypothyroidism, unspecified; K21.9 Gastro-esophageal reflux disease without esophagitis; M79.7 Fibromyalgia; M06.9 Rheumatoid arthritis, unspecified
CPT/HCPCS: 73010; 99283

== ENCOUNTER 2017-09-06 10:35 | Emergency (ER) | payer OTHER ==
[~2017-09-06] VITALS: Ht 147.3 cm; Wt 85.0 kg
[2017-09-06 11:13] VITALS: BP 150/84; PULSE 83; RESP 18; TEMP 98.2; O2SAT 100
[2017-09-06] MEDS ORDERED: DENO60P SQ (12:09)
[2017-09-06] MEDS ORDERED: MELO7.5T27 PO (12:09)
--- NOTE | 2017-09-06 13:31 | PD ---
HPI Chief Complaint: Pain: Acute or Chronic Time Seen by Provider: 12:11 Travel History International Travel<30 days: No Contact w/Intl Traveler<30days: No Traveled to known affect area: No History of Present Illness HPI 62-year-old female presents to the emergency department with complaint of right hip pain and right lower back pain there is been going on for the past "months" and is getting worse. Denies injury. Denies new or recent injury. Denies encopresis, incontinence, saddle anesthesias. Denies IV drug use or cancer. Denies fever, vomiting. Denies chest pain, shortness breath, nausea, vomiting. Denies paresthesias, loss of sensation, decreased range of motion, decreased strength to all extremities. No radiation of pain. Pain is worse with ambulation and movement. Rates pain /10. Has been taking Tylenol with some relief pain. Has not followed up in regards to this complaint with her primary care provider. Primary care provider is Dr. [place]. Allergies as listed on the chart. History of RA and Sjogren's syndrome. Has orthopedic surgeon Dr. Rubio. Has no other medical complaints. No other modifying factors or associated signs and symptoms. PFSH Past Medical History Arthritis: Yes (RA) Blood Disorders: No Cancer: Yes (L BREAST W RADIATION 2008) Cardiovascular Problems: No Diabetes: No Endocrine: No Fibromyalgia: Yes Gastrointestinal Disorders: Yes (GERD) GERD: Yes Glaucoma: No Genitourinary: No Hepatitis: No Hiatal Hernia: Yes Hypertension: No Immune Disorder: No Musculoskeletal: Yes (L HUMEROUS FX, ARTHRITIS, R.A,SPINAL STENOSIS, OSTEOPOROSIS, SCIATICA) Neurologic: Yes (FIBROMYALGIA) Psychiatric: No Reproductive: No Respiratory: No Thyroid Disease: Yes (hypothyroid) Past Surgical History AICD: No Gynecologic Surgery: Yes (D&C X 2) Insulin Pump: No Joint Replacement: Yes (R KNEE 2006) Oral Surgery: Yes (T&A (CHILDHOOD)) Pacemaker: No Thoracic Surgery: Yes (L LUMPECTOMY) Tonsillectomy: Yes Other Surgery: Yes (BREAST BX) Social History Alcohol Use: No Tobacco Use: No Substance Use: No Allergies-Medications (Allergen,Severity, Reaction): Coded Allergies: Sulfa (Sulfonamide Antibiotics) (Verified Allergy, Severe, 09/06/17) adhesive (Verified Allergy, Severe, ALSO ALLERGIC TO PAPER TAPE, 09/06/17) cephalexin (Verified Allergy, Severe, 09/06/17) codeine (Verified Allergy, Severe, 09/06/17) levofloxacin (Verified Allergy, Severe, 09/06/17) meperidine (Verified Allergy, Severe, 09/06/17) penicillin G (Verified Allergy, Severe, 09/06/17) propoxyphene (Verified Allergy, Severe, 09/06/17) pseudoephedrine (Verified Allergy, Severe, 09/06/17) clarithromycin (Verified Allergy, Intermediate, PT STATES SHE WAS AWAKE 3 DAYS, 09/06/17) rofecoxib (Verified Allergy, Intermediate, NAUSEA AND VOMITING, 09/06/17) Uncoded Allergies: Z-PACK (Allergy, Severe, 04/03/05) Reported Meds & Prescriptions Reported Meds & Active Scripts Active Medrol Dosepak (Methylprednisolone) 4 Mg Dspk 4 Mg PO DIRECTED Per Pharmacist direction Robaxin (Methocarbamol) 500 Mg Tab 500 Mg PO QID PRN Calcium 600+D 200 (Calcium Carbonate-Vitamin D) 600-200 Mg-Unit Tab 1 Tab PO BID Hydrocodone-Acetaminophen 10-325 mg Tab 1 Tab PO Q4H PRN Reported Prolia Inj (Denosumab) 60 Mg/Ml Inj 60 Mg SQ Q180D Meloxicam 7.5 Mg Tab 7.5 Mg PO BID Acetaminophen Extra Strength Liq (Acetaminophen) 500 Mg/15 Ml Soln 500 Mg PO Q4- 6H PRN Zyrtec (Cetirizine HCl) 10 Mg Capsule 10 Mg PO HS Plaquenil (Hydroxychloroquine Sulfate) 200 Mg Tab 200 Mg PO BID Take with food Trazodone (Trazodone HCl) 100 Mg Tablet 100 Mg PO HS Flonase Nasal [place] (Fluticasone Nasal [place]) 50 Mcg/Act [place] 50 Mcg EACH NARE DAILY Methotrexate 25 mg/ml Vial (Methotrexate Sodium/Pf) 25 Mg/Ml Vial 0.1 Ml SQ WEDNESDAY Gabapentin 300 Mg Cap 300 Mg PO TID Omeprazole 20 Mg Tab 20 Mg PO DAILY Temazepam 30 Mg Cap 30 Mg PO HS PRN Levothyroxine (Levothyroxine Sodium) 100 Mcg Tab 100 Mcg PO DAILY Dexamethasone Liq (Dexamethasone) 0.5 Mg/5 Ml Soln 0.5 Mg PO BID PRN Folic Acid 0.4 Mg Tab 1,000 Mcg PO BID Cevimeline (Cevimeline HCl) 30 Mg Cap 30 Mg PO TID Review of Systems Except as stated in HPI: all other systems reviewed are Neg Physical Exam Narrative GENERAL: Well-nourished, well-developed femur patient, in no acute distress; afebrile, nontoxic-appearing SKIN: Warm and dry. HEAD: Atraumatic. Normocephalic. EYES: Pupils equal and round. No scleral icterus. No injection or drainage. ENT: Mucosa pink and moist. Airway patent. NECK: Trachea midline. CARDIOVASCULAR: Regular rate. RESPIRATORY: No accessory muscle use. GASTROINTESTINAL: Rounded. MUSCULOSKELETAL: Bilateral lower extremities supple and non-tense with 2+ pedal pulses and sensory intact; with full range of motion and 5/5 strength. 2 + DTRs bilaterally. Active dorsiflexion and extension of bilateral feet. Bilateral straight leg raise is negative for low back pain. Ambulatory in room with normal gait. Sitting up in bed at 90. No leg length discrepancy. Right hip is with tenderness on palpation to the lateral aspect; skin is without erythema, ecchymosis; with tenderness on abduction. No obvious deformities. No clubbing. No cyanosis. No edema. BACK: No midline point tenderness on palpation of the lumbar spine. Tenderness on palpation of right lumbar paraspinal and iliosacral area. No obvious deformities. NEUROLOGICAL: Awake and alert. Oriented 3. No obvious cranial nerve deficits. Motor grossly within normal limits. Normal speech. Moves all extremities. 5/5 strength to all extremities. Sensory intact. PSYCHIATRIC: Appropriate mood and affect; insight and judgment normal. Data Data Last Documented VS Vital Signs Date Time Temp Pulse Resp B/P (MAP) Pulse Ox O2 Delivery O2 Flow Rate FiO2 09/06/17 11:13 98.2 83 18 150/84 (106) 100 Orders Orders Hip, Uni(Ap&Lat) W Ap Pelvis (09/06/17 12:34) Ed Discharge Order (09/06/17 14:01) MDM Medical Decision Making Medical Screen Exam Complete: Yes Emergency Medical Condition: Yes Medical Record Reviewed: Yes Differential Diagnosis Arthritis, osteoarthritis, sciatica, low back pain Narrative Course 62-year-old female with right low back pain and right hip pain. I have for the patient pain medication and she declined. Right hip x-ray with AP pelvis conclude: Hip and Pelvis X-Ray 09/06/17 1234 Signed Impressions: CONCLUSION: No acute abnormality is identified. There is mild joint space narrowing at the right hip joint. Provided a copy of the x-ray report. I have for the patient a prescription for a walker and she does not want one. Says she has a cane at home that she can use for support if needed. Instructed patient to follow-up with orthopedics. Medrol Dosepak and Robaxin prescribed for home. Instructed patient to follow up with primary care provider. Patient verbalizes understanding and agreement with treatment plan. Patient is medically cleared and stable for discharge. Discussed reasons to return to the emergency department. Patient agrees with treatment plan. The patients vital signs are stable and the patient is stable for outpatient follow-up and treatment. Patient discharged home, stable and in no acute distress. Diagnosis Primary Impression: Right low back pain Qualified Codes: M54.5 - Low back pain Additional Impression: Right hip pain Referrals: Orthopaedic Surgeon Primary Care Physician Patient Instructions: Acute Low Back Pain (ED), General Instructions, Hip Pain (ED), Sciatica (ED) Additional Instructions: Tylenol or ibuprofen as directed and as needed for pain Robaxin as prescribed and as needed for muscle spasms Heating pad and/or ice to affected area to reduce pain Avoid aggravating activities; increase activity as tolerated Walker/cane as needed for support Follow-up with primary care provider Follow-up with orthopedics Return to emergency department immediately with worsening of symptoms Med/Other Pt SpecificInfo: Prescription(s) given Scripts Methylprednisolone Dosepak (Medrol Dosepak) 4 Mg Dspk 4 MG PO DIRECTED, #1 DSPK 0 Refills Per Pharmacist direction Prov: Lissett Galvan 09/06/17 Methocarbamol (Robaxin) 500 Mg Tab 500 MG PO QID Y for MUSCLE SPASM, #30 TAB 0 Refills Prov: Lissett Galvan 09/06/17 Disposition: 01 DISCHARGE HOME Condition: Stable Lissett Galvan Sep 06, 2017 13:31
--- NOTE | 2017-09-06 13:45 | RADRPT ---
EXAM DATE: 09/06/2017 1:41 PM EDT AGE/SEX: 62 years / Female INDICATIONS: Right hip pain. No prior trauma. Pain in the lower back and groin. CLINICAL DATA: This is the patient's initial encounter. Patient reports that signs and symptoms have been present for 1 week and indicates a pain score of 6/10. MEDICAL/SURGICAL HISTORY: Arthritis. Total knee replacement, right. COMPARISON: No prior [facility] exams available for comparison. FINDINGS: AP view of the pelvis with 2 views of the right hip demonstrate no fracture or dislocation. Mineraliz ation is within normal limits. There is mild joint space narrowing at the hip joint but no significan t osteophytes are visualized. Sacroiliac joints demonstrate no abnormality. No soft tissue abnormalit y or radiopaque foreign body is identified. CONCLUSION: No acute abnormality is identified. There is mild joint space narrowing at the right hip joint. Electronically signed by: Maulik Quiroz MD 09/06/2017 1:43 PM EDT
[2017-09-06] MEDS ORDERED: ROBA500T PO (14:01)
[2017-09-06] MEDS ORDERED: MEDR4PAK PO (14:01)
== END 2017-09-06 21:00 | disposition home or self-care (01) ==
LOC: NEPD 10:35
DX: M54.5 Low back pain (principal); M25.551 Pain in right hip; E03.9 Hypothyroidism, unspecified; K21.9 Gastro-esophageal reflux disease without esophagitis; M35.00 Sjogren syndrome, unspecified; M79.7 Fibromyalgia
CPT/HCPCS: 73502; 99283